=== PATIENT | female | born 1990 | race Caucasian/White ===

== ENCOUNTER 2017-05-09 00:53 | Emergency (ER) | payer SELFPAY ==
[~2017-05-09] VITALS: Ht 172.7 cm; Wt 75.7 kg
[2017-05-09] MEDS ORDERED: Ketorolac 30mg Inj IV ONE (01:00)
--- NOTE | 2017-05-09 01:00 | Emergency Room Report ---
History of Present Illness General Source: Patient Present Illness HPI Is a 26-year-old female with no significant past medical history. She presents with chief complaint abdominal pain and alcohol intoxication. She said she drank way too much tonight. Did not eat much. She came in because she has diffuse abdominal pain. Pain is 10 out of 10. [place] nauseous and she made herself vomit. No diarrhea. No fever or chills. Came in by EMS. Allergies: Uncoded Allergies: PENICILLIN (Allergy, Unknown, 05/09/17) Patient History Past Medical History: see triage record, old chart reviewed Past Surgical History: other Pertinent Family History: none Social History: Denies: smoking Now: No Immunizations: other Reviewed Nursing Documentation: PMH: Agreed, PSxH: Agreed Review of Systems Eye: Denies: blurred vision, eye pain ENT: Denies: ear pain, nose congestion, throat swelling Respiratory: Denies: cough, shortness of breath Cardiovascular: Denies: chest pain, palpitations Gastrointestinal: Reports: abdominal pain, nausea, Denies: diarrhea, vomiting Musculoskeletal: Denies: back pain, joint pain Skin: Denies: rash Neurological: Denies: headache, numbness Endocrine: Denies: increased thirst, increased urine Hematologic/Lymphatic: Denies: easy bruising All Other Systems: negative except mentioned in HPI Physical Exam vitals unremarkable Sp02 EP Interpretation: reviewed, normal General Appearance: well appearing, no apparent distress, alert Head: normocephalic, atraumatic Eyes: bilateral eye EOMI, bilateral eye PERRL ENT: hearing grossly normal, normal pharynx Neck: full range of motion, supple, no meningismus Respiratory: chest non-tender, lungs clear, normal breath sounds Cardiovascular #1: regular rate, rhythm, no murmur Gastrointestinal: normal bowel sounds, no mass, no organomegaly, no bruit, non- distended, tenderness - diffuse Musculoskeletal: back normal, gait/station normal, normal range of motion Psychiatric: mood/affect normal Skin: warm/dry Medical Decision Making Diagnostic Impression: Primary Impression: Acute alcoholic intoxication Qualified Codes: F10.920 - Alcohol use, unspecified with intoxication, uncomplicated Additional Impression: Abdominal pain Qualified Codes: R10.84 - Generalized abdominal pain ER Course Patient presents with acute alcohol intoxication and abdominal pain. Her labs are unremarkable. Abdomen exam is soft but she has diffuse tenderness. Patient said that the Toradol actually made her more and after IV fluid is making her arm hurt. There was no evidence of infiltration. Her labs are unremarkable. Because she still having pain, I will get a CT scan to make sure there is no evidence of surgical abdomen or obstruction. Initially because of her severe intoxication, I was hesitant to give her narcotics because this may make her sedation worse. Patient refused the morphine even though she says she is in pain. She says she doesn't want her pain to be treated without finding out what was wrong. Explained to her that we don't have to do thing stepwise but can be concomitantly. I explained to her that CAT scan was ordered. We can also treat her pain at the same time. The patient was frustrated because of her pain. She has been very rude, cursing saying things like "fuck," "goddam" and "no shit Sherlock" to me and her nurse. Patient said she when another nurse and Explained to her that we are very busy tonight. I can get another nurse to administer her medication. Also explained that the only doctor on tonight. I explained to the patient again the reason for not getting the CAT scan right away. First, her pain can be explained from the alcohol intoxication. Large amount of alcohol can cause gastritis, alcoholic hepatitis, or other intra- abdominal inflammation. Second, we have to be certain that her kidney function is okay for CAT scan with IV contrast. Third, we have to make sure that she is not . These things take time. She was only here for 1.5 hours when I went to check up on her again. Again, patient refused stronger pain medication and Toradol. She refused the CAT scan. She was cursing at me, nursing staff, and data entry technician. She said that she wanted to leave AGAINST MEDICAL ADVICE. Even though she has been drinking tonight, she is competent to make a decision to leave AGAINST MEDICAL ADVICE. I explained the risks of leaving AGAINST MEDICAL ADVICE. She understand that she may have serious intra-abdominal pathology has not been fully worked up. She may suffer severe morbidity and mortality because of this. Laboratory Tests Test 05/09/17 01:12 White Blood Count 10.1 K/UL (4.8-10.8) Red Blood Count 4.78 M/UL (4.20-5.40) Hemoglobin 14.5 G/DL (12.0-16.0) Hematocrit 42.0 % (37.0-47.0) Mean Corpuscular Volume 88 FL (80-99) Mean Corpuscular Hemoglobin 30.4 PG (27.0-31.0) Mean Corpuscular Hemoglobin Concent 34.6 G/DL (32.0-36.0) Red Cell Distribution Width 12.1 % (11.6-14.8) Platelet Count 299 K/UL (150-450) Mean Platelet Volume 7.5 FL (6.5-10.1) Neutrophils (%) (Auto) 74.5 % (45.0-75.0) Lymphocytes (%) (Auto) 20.0 % (20.0-45.0) Monocytes (%) (Auto) 4.8 % (1.0-10.0) Eosinophils (%) (Auto) 0.2 % (0.0-3.0) Basophils (%) (Auto) 0.5 % (0.0-2.0) Urine Color Pale yellow Urine Appearance Clear Urine pH 7 (4.5-8.0) Urine Specific [place] 1.010 (1.005-1.035) Urine Protein Negative (NEGATIVE) Urine Glucose (UA) Negative (NEGATIVE) Urine Ketones Negative (NEGATIVE) Urine Occult Blood 1+ (NEGATIVE) H Urine Nitrite Negative (NEGATIVE) Urine Bilirubin Negative (NEGATIVE) Urine Urobilinogen Normal MG/DL (0.0-1.0) Urine Leukocyte Esterase Negative (NEGATIVE) Urine RBC 0-2 /HPF (0 - 2) Urine WBC 0 /HPF (0 - 2) Urine Squamous Epithelial Cells Few /LPF (NONE/OCC) Urine Bacteria None /HPF (NONE) Urine HCG, Qualitative Negative Sodium Level 146 mEQ/L (135-145) H Potassium Level 3.9 mEQ/L (3.4-4.9) Chloride Level 105 mEQ/L (98-107) Carbon Dioxide Level 24 mEQ/L (20-30) Anion Gap 17 (5-15) H Blood Urea Nitrogen 7 mg/dL (7-23) Creatinine 0.7 mg/dL (0.5-0.9) Estimat Glomerular Filtration Rate > 60 mL/min (>60) Glucose Level 98 mg/dL (74-106) Calcium Level 9.4 mg/dL (8.6-10.2) Total Bilirubin 0.3 mg/dL (0.0-1.2) Aspartate Amino Transf (AST/SGOT) 22 U/L (5-40) Alanine Aminotransferase (ALT/SGPT) 14 U/L (3-33) Alkaline Phosphatase 51 U/L (35-104) Total Protein 7.4 g/dL (6.6-8.7) Albumin 4.9 g/dL (3.5-5.2) Globulin 2.5 g/dL Albumin/Globulin Ratio 1.9 (1.0-2.7) Lipase 21 U/L (< 60) Serum Alcohol 190 mg/dL Lab Results Impression labs normal Chest X-Ray Diagnostic Results Chest X-Ray Ordered: No Status: improved Disposition: AGAINST MEDICAL ADVICE Condition: Stable DORIS CARTY M.D. May 09, 2017 01:00
[2017-05-09 01:36] LABS: APPEARANCE,URINE CLEAR; KETONES,URINE NEGATIVE (NEGATIVE); LEUKOCYTE ESTERASE ,URINE NEGATIVE (NEGATIVE); NITRITE,URINE NEGATIVE (NEGATIVE); PH,URINE 7 (4.5-8.0); PROTEIN,URINE NEGATIVE (NEGATIVE); UROBILINOGEN,URINE NORMAL MG/DL (0.0-1.0)
[2017-05-09 01:46] LABS: ALANINE AMINOTRANSFERASE 14 U/L (3-33); ALBUMIN/GLOBULIN RATIO 1.9 (1.0-2.7); ANION GAP 17 (5-15); ASPARTATE AMINO TRANSFERASE 22 U/L (5-40); CALCIUM 9.4 mg/dL (8.6-10.2); CARBON DIOXIDE 24 mEQ/L (20-30); CHLORIDE 105 mEQ/L (98-107); CREATININE 0.7 mg/dL (0.5-0.9); GLOMERULAR FILTRATION RATE > 60 mL/min (>60); HEMOLYSIS 5; LIPASE 21 U/L (< 60); POTASSIUM 3.9 mEQ/L (3.4-4.9); SODIUM 146 mEQ/L (135-145); TOTAL PROTEIN 7.4 g/dL (6.6-8.7)
[2017-05-09 01:47] LABS: BASOPHILS % (AUTO) 0.5 % (0.0-2.0); EOSINOPHILS % (AUTO) 0.2 % (0.0-3.0); MEAN CORPUSCULAR HEMOGLOBIN 30.4 PG (27.0-31.0); MEAN CORPUSCULAR HGB CONC 34.6 G/DL (32.0-36.0); MEAN CORPUSCULAR VOLUME 88 FL (80-99); MEAN PLATELET VOLUME 7.5 FL (6.5-10.1); MONOCYTES % (AUTO) 4.8 % (1.0-10.0); NEUTROPHILS % (AUTO) 74.5 % (45.0-75.0); PLATELET COUNT 299 K/UL (150-450); RED BLOOD COUNT 4.78 M/UL (4.20-5.40); RED CELL DISTRIBUTION WIDTH 12.1 % (11.6-14.8); WHITE BLOOD COUNT 10.1 K/UL (4.8-10.8)
[2017-05-09 01:54] LABS: RBC,URINE 0-2 /HPF (0 - 2); SQUAMOUS EPITHELIAL CELL,UR FEW /LPF (NONE/OCC); WBC,URINE 0 /HPF (0 - 2)
[2017-05-09] MEDS ORDERED: Morphine Sulfate 4mg/ml Inj IVP ONE (02:45)
[2017-05-09 03:00] VITALS: BP 0/0
== END 2017-05-09 03:01 | disposition left against medical advice (07) ==
LOC: EDBD 00:53 → EMR 01:18
DX: F10.920 Alcohol use, unspecified with intoxication, uncomplicated (principal); R10.84 Generalized abdominal pain; Z88.0 Allergy status to penicillin
CPT/HCPCS: 36415; 80053; 81003; 81025; 83690; 85025; 96374; 96375; 99284; G0480; J1885; J2405; 80329